=== PATIENT | female | born 1990 | race Caucasian/White ===

== ENCOUNTER 2016-10-03 18:25 | Emergency (ER) | payer BC ==
--- NOTE | 2016-10-03 18:37 | PDOC ---
History of Present Illness - General History Source: Patient Exam Limitations: No Limitations - History of Present Illness Initial Comments: 10/03/16 18:56 The patient is a 25 year old female with a significant past medical history of Umbilical hernia twice repaired, kidney stones, who is sent to the ED by PCP Dr. Brenda Benoit for right leg pain and possible DVT. Patient states the pain first began two days ago at her right knee. She states the pain subsided the next day but she felt tingling and numbness shooting up her calf from the toes when flexing her toes. Patient states she is currently on oral contraceptives ( Tri-estarylla). Denies any trauma. Patient denies SOB, chest pain, abdominal pain, fever, chills, cough, nausea, vomiting, diarrhea. Patient denies recent travels, sick contacts. Patient denies smoking cigarettes, drinking alcohol, drug usage. Denies any family history of clots. <Jarad Huff - Last Filed: 10/03/16 19:04> <Khanh Whitlock - Last Filed: 10/03/16 20:01> - General Chief Complaint: Pain Stated Complaint: RIGHT LEG PAIN TO R/O DVT,SENT BY PMD Time Seen by Provider: 10/03/16 18:32 Past History <Jarad Huff - Last Filed: 10/03/16 19:04> - Past Medical History Anemia: No Asthma: No Cancer: No Cardiac Disorders: No CVA: No COPD: No CHF: No Dementia: No Diabetes: No GI Disorders: No HTN: No Hypercholesterolemia: No Kidney Stones: Yes Liver Disease: No Seizures: No Thyroid Disease: No - Surgical History Abdominal Surgery: Yes (hernia repair) Appendectomy: No Cardiac Surgery: No Cholecystectomy: No Gastric Stapling: No GI Surgery: No Lung Surgery: No Neurologic Surgery: No Orthopedic Surgery: No - Family Disease History Family Disease History: Other: Mother (good health) - Reproductive History (#): 1 Para: 0 - Immunization History Td Vaccination: Yes Immunization Up to Date: Yes - Psycho/Social/Smoking Cessation Hx Anxiety: No Suicidal Ideation: No Smoking Status: No Smoking History: Never smoked Years of Tobacco Use: 0 Have you smoked in the past 12 months: No Number of Cigarettes Smoked Daily: 0 Cigars Per Day: 0 Hx Alcohol Use: No Drug/Substance Use Hx: No Substance Use Type: None Hx Substance Use Treatment: No <Khanh Whitlock - Last Filed: 10/03/16 20:01> - Past Medical History Allergies/Adverse Reactions: Allergies Allergy/AdvReac Type Severity Reaction Status Date / Time No Known Allergies Allergy Verified 10/03/16 18:42 Home Medications: Ambulatory Orders Norgestimate-Ethinyl Estradiol [Tri-Estarylla] 1 each PO ASDIR 10/03/16 Review of Systems - Review of Systems Able to Perform ROS?: Yes Comments:: 10/03/16 18:56 GENERAL/CONSTITUTIONAL: No fever or chills. No weakness. HEAD, EYES, EARS, NOSE AND THROAT: No change in vision. No ear pain or discharge. No sore throat. CARDIOVASCULAR: No chest pain or shortness of breath. RESPIRATORY: No cough, wheezing, or hemoptysis. GASTROINTESTINAL: No nausea, vomiting, diarrhea or constipation. GENITOURINARY: No dysuria, frequency, or change in urination. MUSCULOSKELETAL: Right knee pain radiating to the toes. SKIN: No rash NEUROLOGIC: No headache, vertigo, loss of consciousness, or change in strength/ sensation. ENDOCRINE: No increased thirst. No abnormal weight change. HEMATOLOGIC/LYMPHATIC: No anemia, easy bleeding, or history of blood clots. ALLERGIC/IMMUNOLOGIC: No hives or skin allergy. <Jarad Huff - Last Filed: 10/03/16 19:04> *Physical Exam - Vital Signs Last Vital Signs Temp Pulse Resp BP Pulse Ox 98.8 F 78 18 114/81 99 10/03/16 18:28 10/03/16 18:28 10/03/16 18:28 10/03/16 18:28 10/03/16 18:28 - Physical Exam Comments: 10/03/16 18:56 GENERAL: Awake, alert, and fully oriented, in no acute distress HEAD: No signs of trauma EYES: PERRLA, EOMI, sclera anicteric, conjunctiva clear ENT: Auricles normal inspection, hearing grossly normal, nares patent, oropharynx clear without exudates. Moist mucosa NECK: Normal ROM, supple, no lymphadenopathy, JVD, or masses LUNGS: Breath sounds equal, clear to auscultation bilaterally. No wheezes, and no crackles HEART: Regular rate and rhythm, normal S1 and S2, no murmurs, rubs or gallops ABDOMEN: Soft, nontender, normoactive bowel sounds. No guarding, no rebound. No masses EXTREMITIES: right knee is normal. Original knee pain has subsided. No posterior calf swelling or tenderness. NO palpable cords. Distal pulses full no sensory deficits. Rest of Extremities is normal. NEUROLOGICAL: Cranial nerves II through XII grossly intact. Normal speech, normal gait SKIN: Warm, Dry, normal turgor, no rashes or lesions noted. <Jarad Huff - Last Filed: 10/03/16 19:04> - Vital Signs Last Vital Signs Temp Pulse Resp BP Pulse Ox 98.8 F 78 18 114/81 99 10/03/16 18:28 10/03/16 18:28 10/03/16 18:28 10/03/16 18:28 10/03/16 18:28 <Khanh Whitlock - Last Filed: 10/03/16 20:01> Medical Decision Making - Medical Decision Making 10/03/16 19:13 No exercise or trauma. No travel. On control pills since December 2015. No posterior calf swelling or tenderness to palpation, no edema, no erythema mass or cords. Ultrasound as requested by primary physician. 10/03/16 19:52 No DVT on ultrasound. Most likely vague musculoskeletal pain. Symptomatic treatment and follow-up orthopedist. <Khanh Whitlock - Last Filed: 10/03/16 20:01> *DC/Admit/Observation/Transfer - Attestations Scribe Attestion: 10/03/16 18:56 Documentation prepared by Jarad Huff, acting as medical intern for Khanh Chang MD. <Jarad Huff - Last Filed: 10/03/16 19:04> - Discharge Dispostion Admit: No <Khanh Whitlock - Last Filed: 10/03/16 20:01> Diagnosis at time of Disposition: Musculoskeletal pain - Discharge Dispostion Disposition: HOME Condition at time of disposition: Stable - Referrals Referrals: Parrish Donohue MD [Staff Physician] - - Patient Instructions Printed Discharge Instructions: DI for Musculoskeletal Pain Additional Instructions: Rest and Advil, Motrin, ibuprofen, or Aleve for 3-5 days. If no improvement recheck primary physician or orthopedist as directed.
[2016-10-03 18:41] VITALS: BP 114/81; PULSE 78; TEMP 98.8
== END 2016-10-03 20:00 | disposition home or self-care (01) ==
LOC: FER 18:25
DX: M79.1 Myalgia (principal); Z87.442 Personal history of urinary calculi
CPT/HCPCS: 93971-TC; 99282-25